=== PATIENT | female | born 1950 | race Two or more races ===

== ENCOUNTER 2019-02-28 05:35 | Day surgery (SDC) | payer OTHER ==
[~2019-02-28 05:35] MED LIST: AMOX1TAB5 PO; DOLOGEN CAPLET1 EACH PO; INTESTINEX1 CA1 PO; OMEPRAZOLE20 M1 PO; OSEL75CA PO; PROTONIX40 MG PO; TRAM1TAB PO; TUSSIONEX PENNKI5 ML PO; ZANTAC300 MG PO; ZOFRAN4 MG PO
== END 2019-02-28 11:55 | disposition home or self-care (01) ==
LOC: AMB-ENDOS 05:35
DX: K57.32 Diverticulitis of large intestine without perforation or abscess without bleeding (principal); K57.30 Diverticulosis of large intestine without perforation or abscess without bleeding; K64.8 Other hemorrhoids